=== PATIENT | male | born 2005 | race Caucasian/White ===

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

== ENCOUNTER 2024-04-07 12:31 | Emergency (ER) | payer OTHER ==
[~2024-04-07] VITALS: Ht 177.8 cm; Wt 61.4 kg
[~2024-04-07 12:31] MED LIST changes: +LIDO15SO8 MT; -LIDO1SOL7 MT
[2024-04-07 12:32] VITALS: BP 121/78; TEMP 97.2; O2SAT 100
[2024-04-07] MEDS ORDERED: METH-1165 PO (13:08)
[2024-04-07] MEDS ORDERED: NAPR-837 PO (13:08)
== END 2024-04-07 13:20 | disposition home or self-care (01) ==
LOC: M ED 12:31
DX: S29.012A Strain of muscle and tendon of back wall of thorax, initial encounter (principal); X50.0XXA Overexertion from strenuous movement or load, initial encounter; Y92.9 Unspecified place or not applicable; Y93.89 Activity, other specified; Y99.9 Unspecified external cause status